=== PATIENT | female | born 1985 | race Caucasian/White ===

== ENCOUNTER 2017-05-29 15:00 | Emergency (ER) | payer OTHER ==
[~2017-05-29] VITALS: Ht 162.6 cm; Wt 106.1 kg
[2017-05-29] MEDS ORDERED: NEURONTIN 300300 M1 PO (15:11)
[2017-05-29] MEDS ORDERED: FLEXERIL PO (15:11)
[2017-05-29] MEDS ORDERED: CYMBALTA20 MG PO (15:11)
[2017-05-29] MEDS ORDERED: SULFASALAZINE500 M4 PO (15:11)
[2017-05-29] MEDS ORDERED: TOBRAMYCIN SULFA5 M1 OPHTHALMIC (16:00)
[2017-05-29 16:18] VITALS: BP 136/88
== END 2017-05-29 16:19 | disposition home or self-care (01) ==
LOC: M.ERS 15:00
DX: Z77.098 Contact with and (suspected) exposure to other hazardous, chiefly nonmedicinal, chemicals (principal); M79.7 Fibromyalgia; M19.90 Unspecified osteoarthritis, unspecified site; K50.90 Crohn's disease, unspecified, without complications; F17.200 Nicotine dependence, unspecified, uncomplicated; Z88.6 Allergy status to analgesic agent; Z88.5 Allergy status to narcotic agent

== ENCOUNTER 2020-01-28 23:17 | Emergency (ER) | payer OTHER ==
[~2020-01-28] VITALS: Ht 162.6 cm; Wt 99.8 kg
[~2020-01-28 23:17] MED LIST: CYMBALTA20 MG PO; FLEXERIL PO; NEURONTIN 300300 M1 PO; SULFASALAZINE500 M4 PO; TOBRAMYCIN SULFA5 M1 OPHTHALMIC
[2020-01-28] MEDS ORDERED: FOLIC ACID1 MG PO (23:39)
[2020-01-28] MEDS ORDERED: DICYCLOMINE HCL10 MG PO (23:40)
[2020-01-28] MEDS ORDERED: DULOXETINE HCL20 MG PO (23:40)
[2020-01-28] MEDS ORDERED: TIZANIDINE HCL4 M1 PO (23:41)
[2020-01-29 00:15] LABS: URINE BILIRUBIN NEGATIVE (Negative); URINE BLOOD TRACE (Negative); URINE CLARITY CLEAR; URINE COLOR YELLOW; URINE GLUCOSE-RANDOM NEGATIVE (Negative); URINE KETONES NEGATIVE (Negative); URINE LEUKOCYTES-REFLEX NEGATIVE (Negative); URINE NITRITE-REFLEX NEGATIVE (Negative); URINE PROTEIN NEGATIVE (Negative); URINE SPECIFIC GRAVITY >= 1.030 (1.005-1.030); URINE UROBILINOGEN 0.2 E.U./dl (0.2-1.0)
[2020-01-29 00:22] LABS: AMP/METHAMP Negative (Negative); BARBITURATES Negative (Negative); BENZODIAZEPINES Negative (Negative); COCAINE Negative (Negative); METHADONE Negative (Negative); OPIATES Negative (Negative); PCP Negative (Negative); THC Negative (Negative)
[2020-01-29 00:27] LABS: ABSOLUTE BASOPHILS 0.1 thou/uL (0.0-0.2); ABSOLUTE EOSINOPHILS 0.2 thou/uL (0.0-0.7); ABSOLUTE MONOCYTES 0.6 thou/uL (0.0-1.2); ABSOLUTE NEUTROPHILS 4.6 thou/uL (1.6-8.1); BASOPHILS 0.8 %; EOSINOPHILS 1.7 %; HEMATOCRIT 39.4 % (37.0-47.0); HEMOGLOBIN 13.4 gm/dL (12.0-15.0); LYMPHOCYTES 42.2 %; MCH 31.5 pg (26.0-34.0); MCHC 33.9 g/dL (28.0-37.0); MCV 92.8 fL (80.0-100.0); MONOCYTES 6.8 %; MPV 7.3 fl. (7.2-11.1); NUCLEATED RBCS 0 /100WBC; PLATELET COUNT* 266 thou/uL (150-400); POLYS 48.5 %; RBC 4.25 mil/uL (4.20-5.00); RDW-CV 12.6 % (10.5-14.5); WBC 9.4 thou/uL (4.0-11.0)
[2020-01-29 00:31] LABS: CREATININE 0.7 mg/dL (0.6-1.3); POTASSIUM 3.6 mmol/L (3.5-5.1)
[2020-01-29 00:36] LABS: TOTAL BILIRUBIN 0.1 mg/dL (<0.1-1.0)
[2020-01-29] MEDS ORDERED: ZOFRAN ODT4 MG PO (01:07)
[2020-01-29] MEDS ORDERED: MEDROLDOSEPACK PO (01:07)
[2020-01-29] MEDS ORDERED: HYDROCODON-ACE1 EAC7 PO (01:07)
[2020-01-29 02:45] VITALS: BP 120/77
== END 2020-01-29 02:46 | disposition home or self-care (01) ==
LOC: M.ERS 23:17
PROVIDERS: Personal Emergency Response Attendant
DX: K50.90 Crohn's disease, unspecified, without complications (principal); M19.90 Unspecified osteoarthritis, unspecified site; M79.7 Fibromyalgia; F17.210 Nicotine dependence, cigarettes, uncomplicated; Z88.5 Allergy status to narcotic agent

== ENCOUNTER 2020-02-02 08:55 | Emergency (ER) | payer OTHER ==
[~2020-02-02] VITALS: Ht 162.6 cm; Wt 101.6 kg
[~2020-02-02 08:55] MED LIST changes: +DICYCLOMINE HCL10 MG PO; +DULOXETINE HCL20 MG PO; +FOLIC ACID1 MG PO; +HYDROCODON-ACE1 EAC7 PO; +MEDROLDOSEPACK PO; +TIZANIDINE HCL4 M1 PO; +ZOFRAN ODT4 MG PO
[2020-02-02 09:50] LABS: ABSOLUTE BASOPHILS 0.1 thou/uL (0.0-0.2); ABSOLUTE EOSINOPHILS 0.1 thou/uL (0.0-0.7); ABSOLUTE LYMPHOCYTES 3.4 thou/uL (0.8-5.3); ABSOLUTE MONOCYTES 0.7 thou/uL (0.0-1.2); ABSOLUTE NEUTROPHILS 8.5 thou/uL (1.6-8.1); BASOPHILS 0.6 %; EOSINOPHILS 0.8 %; HEMATOCRIT 43.1 % (37.0-47.0); HEMOGLOBIN 14.6 gm/dL (12.0-15.0); LYMPHOCYTES 26.7 %; MCH 31.1 pg (26.0-34.0); MCHC 33.9 g/dL (28.0-37.0); MCV 91.9 fL (80.0-100.0); MONOCYTES 5.3 %; MPV 7.2 fl. (7.2-11.1); NUCLEATED RBCS 0 /100WBC; PLATELET COUNT* 278 thou/uL (150-400); POLYS 66.6 %; RBC 4.69 mil/uL (4.20-5.00); RDW-CV 12.8 % (10.5-14.5); WBC 12.7 thou/uL (4.0-11.0)
[2020-02-02 09:54] LABS: CALCIUM 8.2 mg/dL (8.5-10.1); CREATININE 0.9 mg/dL (0.6-1.3); POTASSIUM 3.4 mmol/L (3.5-5.1)
[2020-02-02 09:58] LABS: ALBUMIN 3.6 g/dL (3.4-5.0); TOTAL BILIRUBIN 0.4 mg/dL (<0.1-1.0); TOTAL PROTEIN 7.8 g/dL (6.4-8.2)
[2020-02-02] MEDS ORDERED: NORCO 5-325 TA1 EAC2 PO (11:45)
[2020-02-02] MEDS ORDERED: ZOFRAN ODT4 MG SUBLING (11:45)
[2020-02-02] MEDS ORDERED: PREDNISONE 20 M20 M1 PO (11:45)
[2020-02-02 12:00] VITALS: BP 131/85
== END 2020-02-02 12:02 | disposition home or self-care (01) ==
LOC: M.ERS 08:55
PROVIDERS: Family Medicine
DX: R10.13 Epigastric pain (principal); R19.7 Diarrhea, unspecified; K50.90 Crohn's disease, unspecified, without complications; M79.7 Fibromyalgia; M19.90 Unspecified osteoarthritis, unspecified site; Z88.5 Allergy status to narcotic agent

== ENCOUNTER → 2020-02-03 | Outpatient (CLI) | payer OTHER ==
[~2020-02-03] MED LIST changes: +NORCO 5-325 TA1 EAC2 PO; +PREDNISONE 20 M20 M1 PO; +ZOFRAN ODT4 MG SUBLING
== END ==
LOC: M.ULTRA 07:31
PROVIDERS: ATTEND Internal Medicine Gastroenterology
DX: R10.9 Unspecified abdominal pain (principal)